=== PATIENT | male | born 2000 | race Hispanic/Latino ===

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

== ENCOUNTER 2021-11-21 03:36 | Emergency (ER) | payer OTHER ==
[~2021-11-21] VITALS: Ht 172.7 cm; Wt 93.0 kg
[2021-11-21 03:59] VITALS: BP 139/61
== END 2021-11-21 05:26 | disposition home or self-care (01) ==
LOC: EDH 03:36
DX: B34.9 Viral infection, unspecified (principal)
CPT/HCPCS: 87804